=== PATIENT | female | born 1990 | race Hispanic/Latino ===

== ENCOUNTER 2020-06-06 09:10 | Emergency (ER) | payer SELFPAY ==
[~2020-06-06] VITALS: Ht 167.6 cm; Wt 75.0 kg
[2020-06-06 12:06] LABS: TSH, 3RD GENERATION 0.67 uIU/mL (0.47 - 4.68)
[2020-06-06 12:15] VITALS: BP 119/69
== END 2020-06-06 12:15 | disposition home or self-care (01) | DRG 601 ==
LOC: ED 09:10
PROVIDERS: Family Medicine
DX: N64.52 Nipple discharge (principal)